=== PATIENT | male | born 1965 | race Caucasian/White ===

== ENCOUNTER 2017-04-06 19:11 | Emergency (ER) | payer OTHER ==
[~2017-04-06] VITALS: Ht 175.3 cm; Wt 113.4 kg
[~2017-04-06 19:11] MED LIST: B-100 COMPLEX1 EAC1 PO; B12INJ; GLUCOPHAGE500 MG PO; HIGH BLOOD PRESSURE; HUMALOG100 UNIT/1 SQ; LANTUS SUBQ; MULTIVITAMINS; PREDNISONE 20 M20 M1 PO
[2017-04-06] MEDS ORDERED: DULOXETINE HCL60 MG (19:26)
[2017-04-06] MEDS ORDERED: LEVOXYL75 MCG (19:27)
[2017-04-06] MEDS ORDERED: PANTOPRAZOLE SO40 M1 (19:27)
[2017-04-06] MEDS ORDERED: MICARDIS 80 MG80 MG PO (19:28)
[2017-04-06] MEDS ORDERED: LIPITOR10 MG (19:28)
[2017-04-06 19:58] LABS: INFLUENZA A ANTIGEN None Detected (None Detect); INFLUENZA B ANTIGEN None Detected (None Detect)
[2017-04-06 20:01] LABS: HEMATOCRIT 37.6 % (42.0-52.0); HEMOGLOBIN 11.8 gm/dL (14.0-18.0); MCH 23.5 pg (26.0-34.0); MCHC 31.5 g/dL (28.0-37.0); MCV 74.6 fL (80.0-100.0); MPV 8.3 fl. (7.2-11.1); NUCLEATED RBCS 0 /100WBC; PLATELET COUNT* 306 thou/uL (150-400); RBC 5.03 mil/uL (4.50-6.00); RDW-CV 17.4 % (10.5-14.5); WBC 11.3 thou/uL (4.0-11.0)
[2017-04-06 20:08] LABS: INR 1.1; PROTIME 10.6 Seconds (9.20-11.50)
[2017-04-06 20:09] LABS: CALCIUM 8.5 mg/dL (8.5-10.1); CREATININE 0.9 mg/dL (0.6-1.3); POTASSIUM 3.8 mmol/L (3.5-5.1)
[2017-04-06 20:13] LABS: ALBUMIN 3.6 g/dL (3.4-5.0); TOTAL BILIRUBIN 0.5 mg/dL (<0.1-1.0); TOTAL PROTEIN 7.5 g/dL (6.4-8.2)
[2017-04-06 20:54] LABS: ABSOLUTE BASOPHILS 0.2 thou/uL (0.0-0.2); ABSOLUTE EOSINOPHILS 0.1 thou/uL (0.0-0.7); ABSOLUTE LYMPHOCYTES 1.9 thou/uL (0.8-5.3); ABSOLUTE MONOCYTES 1.1 thou/uL (0.0-1.2); ABSOLUTE NEUTROPHILS 7.9 thou/uL (1.6-8.1)
[2017-04-06 20:55] LABS: ANISOCYTOSIS 1+; PLATELET ESTIMATE ADEQUATE
[2017-04-06 20:56] LABS: MICROCYTES 1+
[2017-04-06] MEDS ORDERED: ZPAK PO (21:08)
[2017-04-06 21:35] VITALS: BP 143/89
--- NOTE | 2017-04-08 12:37 | EKG ---
[place] [address] ELECTROCARDIOGRAM REPORT Name: JUSTIN BILLINGS JR Room: [facility]#: [id number] Admission: 04/06/17 Attend Phys: Discharge: 04/06/17 Date of : 63 Report #: [id number] THIS REPORT FOR: //name// [facility] ED Test Date: 2017-04-06 Test Time: 19:35:16 Pat Name: JUSTIN BILLINGS Department: Room: Gender: Passenger Service Agent: JESSICA Alexander : 1965 Requested By: Corby Cortez Order Number: [id number] MD: Jan Anderson Measurements Intervals [place] Rate: 124 P: 27 MN: 127 QRS: -109 QRSD: 145 T: 1 QT: 325 QTc: 467 Interpretive Statements Sinus tachycardia Right bundle branch block Inferior infarct, old Compared to ECG 09/25/2005 13:59:43 Myocardial infarct finding now present Atrial premature complex(es) no longer present Ventricular premature complex(es) no longer present Electronically Signed On 04-08-2017 12:37:33 [employer]PENTRY INSTRU[employer] by Jan Anderson [email or web address] <ELECTRONICALLY SIGNED> By: Jan Anderson MD, FACC 04/08/17 1237 [id number] 34 Jan Anderson MD, FAC /EPI
== END 2017-04-06 21:35 | disposition home or self-care (01) ==
LOC: M.ERS 19:11
PROVIDERS: Family Medicine
DX: B34.9 Viral infection, unspecified (principal); I10 Essential (primary) hypertension; K21.9 Gastro-esophageal reflux disease without esophagitis; E03.9 Hypothyroidism, unspecified; E11.9 Type 2 diabetes mellitus without complications; Z98.890 Other specified postprocedural states; Z88.5 Allergy status to narcotic agent; Z88.0 Allergy status to penicillin

== ENCOUNTER → 2017-09-16 | Outpatient (CLI) | payer OTHER ==
[~2017-09-16] MED LIST changes: +DULOXETINE HCL60 MG; +LEVOXYL75 MCG; +LIPITOR10 MG; +MICARDIS 80 MG80 MG PO; +PANTOPRAZOLE SO40 M1; +ZPAK PO
== END ==
LOC: M.RAD 09:47
DX: M47.816 Spondylosis without myelopathy or radiculopathy, lumbar region (principal); M41.86 Other forms of scoliosis, lumbar region